=== PATIENT | female | born 1975 | race Caucasian/White ===

== ENCOUNTER 2017-12-22 12:24 | Emergency (ER) | payer SELFPAY ==
[2017-12-22] MEDS ORDERED: predniSONE 20 MG TAB ONE (12:50)
[2017-12-22] MEDS ORDERED: Clindamycin 150 MG CAP ONE (12:50)
== END 2017-12-22 13:03 | disposition home or self-care (01) ==
LOC: MADERS 12:24
DX: L03.032 Cellulitis of left toe (principal); J45.909 Unspecified asthma, uncomplicated; F17.210 Nicotine dependence, cigarettes, uncomplicated
CPT/HCPCS: 99283; J7506

== ENCOUNTER 2022-03-22 01:11 | Emergency (ER) | payer SELFPAY | END 2022-03-22 03:14 | disposition home or self-care (01) | LOC: MADERS 01:11 | DX: T65.891A Toxic effect of other specified substances, accidental (unintentional), initial encounter (principal); J45.909 Unspecified asthma, uncomplicated; F17.210 Nicotine dependence, cigarettes, uncomplicated; Z79.899 Other long term (current) drug therapy | CPT/HCPCS: 71046 ==

== ENCOUNTER 2022-09-21 17:03 | Emergency (ER) | payer SELFPAY ==
[2022-09-21] MEDS ORDERED: Amoxicillin/Potassium Clav 875 MG TAB ONE (17:39)
[2022-09-21] MEDS ORDERED: Dexamethasone 10 MG/ML VIAL ONE (17:39)
[2022-09-21] MEDS ORDERED: Ketorolac Tromethamine 60 MG/2 ML VIAL ONE (17:39)
== END 2022-09-21 18:54 | disposition home or self-care (01) ==
LOC: MADERS 17:03
DX: J45.901 Unspecified asthma with (acute) exacerbation (principal); J18.9 Pneumonia, unspecified organism; H66.92 Otitis media, unspecified, left ear; F17.210 Nicotine dependence, cigarettes, uncomplicated; Z79.899 Other long term (current) drug therapy; Z20.822 Contact with and (suspected) exposure to COVID-19
CPT/HCPCS: 71045; 87081; 87430; 87804; 96372; J1100; J1885; J7620; U0003; U0005

== ENCOUNTER 2022-10-04 17:08 | Emergency (ER) | payer SELFPAY ==
[~2022-10-04 17:08] MED LIST: Iopamidol 370 76% 100 ML VIAL ONE
[2022-10-04] MEDS ORDERED: Morphine 4 MG/ML VIAL ONE (19:33)
[2022-10-04] MEDS ORDERED: Orphenadrine Citrate 60 MG/2 ML VIAL ONE (19:33)
[2022-10-04 19:52] LABS: BHCG - Serum Negative (NEGATIVE); Pregs Control Background? CLEAR/WHITE (CLR/WHITE); Pregs Control Bar Appear? YES (CONTROL BAR)
[2022-10-04 19:56] LABS: #Basophils 0.1 thou/uL (0.0-0.2); #Eosinphils 0.1 thou/uL (0.0-0.7); #Lymphocytes 2.8 thou/uL (1.20-3.40); #Monocytes 1.1 thou/uL (0.11-0.59); #Neutrophils 9.8 thou/uL (1.40-6.50); %Eosinophils 0.7 % (0.0-10.0); %Monocytes 7.8 % (0.0-10.0); %Neutrophils 70.6 % (42.0-75.0); ALT (SGPT) 30 U/L (8-55); AST (SGOT) 17 U/L (5-34); Albumin 4.2 g/dL (3.5-5.0); Alkaline Phosphatase 93 U/L (40-110); Anion Gap 16 mmol/L (10-20); BUN (Urea Nitrogen) 12 mg/dL (7.0-18.7); Bilirubin, Total 0.4 mg/dL (0.2-1.2); Calc. Creatinine Clearance 0 mL/min (70-130); Calcium 9.4 mg/dL (7.8-10.44); Carbon Dioxide 19 mmol/L (22-29); Chloride 106 mmol/L (98-107); Estimated GFR 89; Globulin 3.8 g/dL (2.4-3.5); Glucose 94 mg/dL (70-105); Hemoglobin 16.6 g/dL (12.0-16.0); MDiff Complete? YES; Macrocytosis MODERATE=16-30 cells (100X) (0-5/hpf); Mean Corpuscular HGB CONC 33.7 g/dL (32.0-36.0); Mean Corpuscular Volume 101.1 fl (78.0-98.0); Mean Platelet Volume 6.4 fL (7.4-10.4); Platelet Count 421 10x3/uL (130-400); Potassium 3.6 mmol/L (3.5-5.1); RBC Distribution Width 11.4 % (11.5-14.5); Red Blood Cell (RBC) Count 4.87 mill/uL (4.20-5.40); Sodium 137 mmol/L (136-145); White Blood Cell (WBC) Count 13.9 10x3/uL (4.8-10.8)
[2022-10-04] MEDS ORDERED: Lactated Ringer's 1,000 ML ONE (21:11)
[2022-10-04] MEDS ORDERED: Ketorolac Tromethamine 30 MG/ML VIAL ONE (21:15)
== END 2022-10-04 23:47 | disposition home or self-care (01) ==
LOC: MADERS 17:08
DX: S62.91XA Unspecified fracture of right hand, initial encounter for closed fracture (principal); M54.2 Cervicalgia; F17.210 Nicotine dependence, cigarettes, uncomplicated; J45.909 Unspecified asthma, uncomplicated; V89.2XXA Person injured in unspecified motor-vehicle accident, traffic, initial encounter
CPT/HCPCS: 36415; 70450; 71260; 72125; 74177; 80053; 84703; 85025; 96361; 96374; 96375; J1885; J2270; J2360; J7120; Q9967